=== PATIENT | female | born 1950 | race Caucasian/White ===

== ENCOUNTER 2020-05-19 05:43 | Observation (INO) | payer OTHER ==
[2020-05-18 12:57] VITALS: BP 149/71
[2020-05-18 13:09] LABS: BASOPHILS % (AUTO) 1 % (0-1); EOSINOPHILS % (AUTO) 6 % (1-7); LYMPHOCYTES % (AUTO) 23 % (22-44); MEAN CORPUSCULAR HEMOGLOBIN 31.1 pg (27.0-34.8); MEAN CORPUSCULAR HGB CONC 33.9 g/dL (32.4-35.8); MEAN PLATELET VOLUME 8.4 fL (7.4-10.4); MONOCYTES % (AUTO) 7 % (2-9); NEUTROPHILS % (AUTO) 63 % (42-75); PLATELET COUNT 193 x10^3/uL (130-400); RED BLOOD COUNT 3.75 x10^6/uL (3.82-5.3); RED CELL DISTRIBUTION WIDTH 13.6 % (9.6-15.2)
[2020-05-18 13:10] LABS: MD NO
[2020-05-18 13:13] LABS: ALBUMIN 3.2 g/dL (3.4-5.0); ANION GAP 6 mmol/L (5-15); CALCIUM 8.4 mg/dL (8.5-10.1); CHLORIDE 94 mmol/L (98-107)
[2020-05-18 13:14] LABS: INTERNATIONAL NORMALIZED RATIO 1.07 (0.93-1.1); PROTHROMBIN TIME 11.4 Seconds (9.6-11.5)
[2020-05-18 13:17] LABS: ALANINE AMINOTRANSFERASE 23 U/L (12-78); ALKALINE PHOSPHATASE 79 U/L (45-117); BILIRUBIN,TOTAL 0.8 mg/dL (0.2-1.0); CREATININE 2.19 mg/dL (0.55-1.02); TOTAL PROTEIN 7.2 g/dL (6.4-8.2)
[~2020-05-19] VITALS: Ht 157.5 cm; Wt 57.0 kg
[~2020-05-19 05:43] MED LIST: AMLO-150 PO; ASPI81TA45 PO; ATOR-2 PO; CA C1TAB26 PO; CARV6.252 PO; FURO80TA77 PO; LISI-170 PO; METO2.5T PO
[2020-05-19 06:34] VITALS: BP 149/71
[2020-05-19] MEDS ORDERED: MIDAZOLAM 1 MG/ML, 2ML ONE (06:56)
[2020-05-19] MEDS ORDERED: FENTANYL PF 100 MCG/2ML ONE (06:56)
[2020-05-19] MEDS ORDERED: CEFAZOLIN 1,000 MG ONE (06:58)
[2020-05-19] MEDS ORDERED: DEXAMETHASONE 4 MG/ML, 1ML ONE (06:58)
[2020-05-19] MEDS ORDERED: ONDANSETRON 2MG/ML, 2ML ONE (06:58)
[2020-05-19] MEDS ORDERED: PROPOFOL 10 MG/ML, 20ML ONE (06:58)
[2020-05-19] MEDS ORDERED: PAPAVERINE 30 MG/ML, 2ML ONE (06:59)
[2020-05-19] MEDS ORDERED: BUPIVACAINE/PF 0.5% ONE (06:59)
[2020-05-19] MEDS ORDERED: HEPARIN 1,000 UNITS/ML, 10ML ONE (06:59)
[2020-05-19] MEDS ORDERED: THROMBIN 20,000 UNIT VIAL TP ONE (07:00)
[2020-05-19] MEDS ORDERED: LACTATED RINGERS 1,000 ML IV SCH (07:00)
[2020-05-19] MEDS ORDERED: EPINEPHRINE 1 MG/ML, 1ML ONE (07:00)
[2020-05-19] MEDS ORDERED: CHLORHEXIDINE 15 ML UDC MM ONE (07:00)
[2020-05-19] MEDS ORDERED: PROTAMINE SULFATE 10 MG/ML, 25ML ONE ×2 (07:00→07:03)
[2020-05-19] MEDS ORDERED: SODIUM CHLORIDE 0.9% 1,000 ML IV SCH (07:30)
[2020-05-19] MEDS ORDERED: EPHEDRINE 50 MG/ML, 1ML ONE (07:37)
[2020-05-19] MEDS ORDERED: BUPIVACAINE/PF-EPI 0.5% 1:200K INFIL ONE (07:53)
[2020-05-19] MEDS ORDERED: HEPARIN 1,000 UNITS/ML, 10ML IV ONE (07:53)
[2020-05-19] MEDS ORDERED: ONDANSETRON 2MG/ML, 2ML IVPush PRN (08:00)
[2020-05-19] MEDS ORDERED: PROMETHAZINE 25 MG/ML, 1ML IVPush PRN (08:00)
[2020-05-19] MEDS ORDERED: OXYcodone 5 MG/5 ML ORAL.SOL UDC PO PRN (08:00)
[2020-05-19] MEDS ORDERED: HYDROcodone/APAP 7.5-325MG/15ML UDC PO PRN (08:00)
[2020-05-19] MEDS ORDERED: HYDROmorphone 1 MG/ML, 1ML INJ IVPush PRN (08:00)
[2020-05-19] MEDS ORDERED: MEPERIDINE/PF 25MG/0.5ML IVPush PRN (08:00)
[2020-05-19] MEDS ORDERED: FENTANYL PF 100 MCG/2ML IV PRN (08:00)
[2020-05-19] MEDS ORDERED: HYDROcodone/APAP 5/325 TABLET PO PRN (09:30)
[2020-05-19] MEDS ORDERED: SODIUM CHLORIDE FLUSH 10ML SYR IVF SCH (21:00)
== END 2020-05-19 10:45 | disposition home or self-care (01) ==
LOC: OUT 05:43 → ORIP 05:44
PROVIDERS: ADMIT Surgery; ATTEND Surgery
DX: I12.0 Hypertensive chronic kidney disease with stage 5 chronic kidney disease or end stage renal disease (principal); Z20.822 Contact with and (suspected) exposure to COVID-19; E11.22 Type 2 diabetes mellitus with diabetic chronic kidney disease; N18.6 End stage renal disease; I70.213 Atherosclerosis of native arteries of extremities with intermittent claudication, bilateral legs; Z89.512 Acquired absence of left leg below knee; Z89.511 Acquired absence of right leg below knee; Z99.2 Dependence on renal dialysis; Z79.82 Long term (current) use of aspirin; Z79.899 Other long term (current) drug therapy
CPT/HCPCS: 36415; 36821; 71046; 80053; 82962; 85025; 85610; 85730; 93005; G0378; J0171; J0690; J1100; J1644; J2250; J2405; J2704; J3010; J7030; S0020; U0003; J2720; J2440

== ENCOUNTER 2020-09-17 05:52 | Observation (INO) | payer OTHER ==
[2020-09-14 16:29] LABS: ALANINE AMINOTRANSFERASE 20 U/L (12-78); ALBUMIN 3.4 g/dL (3.4-5.0); ANION GAP 6 mmol/L (5-15); CHLORIDE 94 mmol/L (98-107)
[2020-09-14 16:31] LABS: ALKALINE PHOSPHATASE 67 U/L (45-117); BILIRUBIN,TOTAL 0.4 mg/dL (0.2-1.0); CREATININE 2.81 mg/dL (0.55-1.02); TOTAL PROTEIN 7.5 g/dL (6.4-8.2)
[2020-09-14 16:35] LABS: INTERNATIONAL NORMALIZED RATIO 1.11 (0.93-1.1); PROTHROMBIN TIME 11.8 Seconds (9.6-11.5)
[2020-09-14 16:39] LABS: BASOPHILS % (AUTO) 1 % (0-1); EOSINOPHILS % (AUTO) 8 % (1-7); LYMPHOCYTES % (AUTO) 27 % (22-44); MEAN CORPUSCULAR HEMOGLOBIN 32.4 pg (27.0-34.8); MEAN CORPUSCULAR HGB CONC 33.9 g/dL (32.4-35.8); MEAN PLATELET VOLUME 8.1 fL (7.4-10.4); MONOCYTES % (AUTO) 8 % (2-9); NEUTROPHILS % (AUTO) 56 % (42-75); PLATELET COUNT 205 x10^3/uL (130-400); RED CELL DISTRIBUTION WIDTH 13.4 % (9.6-15.2)
[~2020-09-17] VITALS: Ht 157.5 cm; Wt 57.7 kg
[~2020-09-17 05:52] MED LIST changes: +FAMO20TA17 PO; +METO5TAB5 PO; +SEVE800T8 PO
[2020-09-17 06:25] VITALS: BP 156/79
[2020-09-17] MEDS ORDERED: CHLORHEXIDINE 15 ML UDC ONE ×2 (07:02→11:33)
[2020-09-17] MEDS ORDERED: LIDOCAINE 1%, 10ML ONE (07:06)
[2020-09-17] MEDS ORDERED: LIDOCAINE 1%, 20ML ONE (07:06)
[2020-09-17] MEDS ORDERED: FENTANYL PF 100 MCG/2ML ONE ×2 (07:21→11:12)
[2020-09-17] MEDS ORDERED: NALOXONE 1 MG/ML, 2ML ONE (07:21)
[2020-09-17] MEDS ORDERED: FLUMAZENIL 0.1 MG/1 ML, 5ML ONE (07:21)
[2020-09-17] MEDS ORDERED: PROTAMINE SULFATE 10 MG/ML, 25ML ONE ×2 (07:21→10:07)
[2020-09-17] MEDS ORDERED: HEPARIN 1,000 UNITS/ML, 10ML ONE ×2 (07:21→09:17)
[2020-09-17] MEDS ORDERED: MIDAZOLAM 1 MG/ML, 5ML ONE (07:21)
[2020-09-17] MEDS ORDERED: SODIUM CHLORIDE 0.9% 1,000 ML IV SCH (07:30)
[2020-09-17] MEDS ORDERED: CHLORHEXIDINE 15 ML UDC PO ONE (07:30)
[2020-09-17] MEDS ORDERED: THROMBIN 20,000 UNIT VIAL TP ONE (09:17)
[2020-09-17] MEDS ORDERED: PROTAMINE SULFATE 10 MG/ML, 5ML ONE (09:17)
[2020-09-17] MEDS ORDERED: PAPAVERINE 30 MG/ML, 2ML ONE (09:17)
[2020-09-17] MEDS ORDERED: EPINEPHRINE 1 MG/ML, 1ML ONE (09:17)
[2020-09-17] MEDS ORDERED: BUPIVACAINE/PF 0.5% ONE (09:17)
[2020-09-17] MEDS ORDERED: VISIPAQUE 270 MG/ML, 150ML BOTTLE ONE (10:29)
[2020-09-17] MEDS ORDERED: HEPARIN 1,000 UNITS/ML, 10ML IV ONE (11:17)
[2020-09-17] MEDS ORDERED: BUPIVACAINE/PF 0.5% INFIL ONE (11:18)
[2020-09-17] MEDS ORDERED: EPINEPHRINE 1 MG/ML, 1ML INFIL ONE (11:18)
[2020-09-17] MEDS ORDERED: HYDROmorphone 1 MG/ML, 1ML INJ IVPush PRN (11:30)
[2020-09-17] MEDS ORDERED: OXYcodone 5 MG/5 ML ORAL.SOL UDC PO PRN (11:30)
[2020-09-17] MEDS ORDERED: PROMETHAZINE 25 MG SUPP PR PRN (11:30)
[2020-09-17] MEDS ORDERED: FENTANYL PF 100 MCG/2ML IV PRN (11:30)
[2020-09-17] MEDS ORDERED: PROMETHAZINE 25 MG/ML, 1ML IVPush PRN (11:30)
[2020-09-17] MEDS ORDERED: ACETAMINOPHEN 325 MG TABLET PO PRN (11:30)
[2020-09-17] MEDS ORDERED: LABETALOL 5MG/ML, 20ML IV PRN (11:30)
[2020-09-17] MEDS ORDERED: ONDANSETRON 2MG/ML, 2ML IVPush PRN ×2 (11:30→13:30)
[2020-09-17] MEDS ORDERED: ACETAMINOPHEN 500 MG TABLET ONE (11:33)
[2020-09-17] MEDS ORDERED: PROPOFOL 10 MG/ML, 20ML ONE (11:58)
[2020-09-17] MEDS ORDERED: ONDANSETRON 2MG/ML, 2ML ONE (11:58)
[2020-09-17] MEDS ORDERED: CEFAZOLIN 1,000 MG ONE (11:58)
[2020-09-17] MEDS: hydrALAzine 20 MG/ML, 1ML IV PRN ×2 (13:20→14:19)
[2020-09-17] MEDS ORDERED: hydrALAzine 20 MG/ML, 1ML ONE (13:24)
[2020-09-17] MEDS ORDERED: OXYcodone 5 MG/5 ML ORAL.SOL UDC ONE (13:39)
[2020-09-17] MEDS ORDERED: ACETAMINOPHEN 650 MG/20.3 ML UDC ONE (13:40)
[2020-09-17] MEDS ORDERED: SODIUM CHLORIDE FLUSH 10ML SYR IVF SCH (21:00)
== END 2020-09-17 17:00 | disposition home or self-care (01) ==
LOC: OUT 05:52 → ORIP 12:53
PROVIDERS: ADMIT Surgery; ATTEND Surgery
DX: I12.0 Hypertensive chronic kidney disease with stage 5 chronic kidney disease or end stage renal disease (principal); Z20.822 Contact with and (suspected) exposure to COVID-19; E11.22 Type 2 diabetes mellitus with diabetic chronic kidney disease; N18.6 End stage renal disease; I73.9 Peripheral vascular disease, unspecified; Z89.511 Acquired absence of right leg below knee; Z89.512 Acquired absence of left leg below knee; Z99.2 Dependence on renal dialysis; Z79.82 Long term (current) use of aspirin; Z79.899 Other long term (current) drug therapy
CPT/HCPCS: 36415; 36819; 37224; 71046; 75630; 76937; 80053; 82962; 85025; 85610; 85730; 93005; 99156; 99157; C1725; C1751; C1760; C1769; C1894; C2623; G0378; J0171; J0360; J0690; J1644; J2250; J2405; J2704; J2720; J3010; J3490; J7030; Q9966; S0020; U0003; U0005; J2310; J2440

== ENCOUNTER 2020-11-05 10:10 | Inpatient (IN) | payer OTHER ==
[~2020-11-05] VITALS: Ht 152.4 cm; Wt 61.8 kg
[2020-11-05] MEDS ORDERED: DORZ1DRO5 EACHEYE (11:24)
[2020-11-05] MEDS ORDERED: CLOP75TA52 PO (11:24)
[2020-11-05] MEDS ORDERED: TRAM50TA2 PO (11:24)
[2020-11-05] MEDS ORDERED: LATA2.5D4 EACHEYE (11:24)
[2020-11-05 11:29] VITALS: BP 157/93
[2020-11-05] MEDS ORDERED: PLEASE ENTER HEIGHT AND WEIGHT MC SCH (11:30)
[2020-11-05] MEDS ORDERED: CHLORHEXIDINE 15 ML UDC PO ONE (11:30)
[2020-11-05 11:40] LABS: BASOPHILS % (AUTO) 1 % (0-1); EOSINOPHILS % (AUTO) 6 % (1-7); LYMPHOCYTES % (AUTO) 25 % (22-44); MEAN CORPUSCULAR HEMOGLOBIN 32.4 pg (27.0-34.8); MEAN CORPUSCULAR HGB CONC 34.1 g/dL (32.4-35.8); MEAN PLATELET VOLUME 7.8 fL (7.4-10.4); MONOCYTES % (AUTO) 9 % (2-9); NEUTROPHILS % (AUTO) 59 % (42-75); PLATELET COUNT 225 x10^3/uL (130-400); RED BLOOD COUNT 3.68 x10^6/uL (3.82-5.3); RED CELL DISTRIBUTION WIDTH 13.4 % (9.6-15.2)
[2020-11-05 11:55] LABS: ALANINE AMINOTRANSFERASE 14 U/L (12-78); ALBUMIN 3.4 g/dL (3.4-5.0); ANION GAP 11 mmol/L (5-15); CALCIUM 9.2 mg/dL (8.5-10.1); CHLORIDE 95 mmol/L (98-107); CREATININE 4.19 mg/dL (0.55-1.02)
[2020-11-05 11:57] LABS: ALKALINE PHOSPHATASE 63 U/L (45-117); BILIRUBIN,TOTAL 0.4 mg/dL (0.2-1.0); TOTAL PROTEIN 7.6 g/dL (6.4-8.2)
[2020-11-05] MEDS ORDERED: SODIUM CHLORIDE 0.9% 1,000 ML IV SCH (12:00)
[2020-11-05] MEDS ORDERED: HEPARIN 1,000 UNITS/ML, 30ML ONE (13:33)
[2020-11-05] MEDS ORDERED: BUPIVACAINE/PF 0.5% ONE (13:33)
[2020-11-05] MEDS ORDERED: PROTAMINE SULFATE 10 MG/ML, 5ML ONE (13:33)
[2020-11-05] MEDS ORDERED: EPINEPHRINE 1 MG/ML, 1ML ONE (13:33)
[2020-11-05] MEDS ORDERED: FENTANYL PF 250 MCG/5ML ONE (14:01)
[2020-11-05] MEDS ORDERED: PROPOFOL 50 ML ONE (14:01)
[2020-11-05] MEDS ORDERED: ONDANSETRON 2MG/ML, 2ML ONE (14:41)
[2020-11-05] MEDS ORDERED: GLYCOPYRROLATE 0.2MG/1ML, 5ML ONE (14:56)
[2020-11-05] MEDS ORDERED: EPHEDRINE 50 MG/ML, 1ML IM PRN (15:00)
[2020-11-05] MEDS ORDERED: OXYcodone 5 MG/5 ML ORAL.SOL UDC PO PRN (15:00)
[2020-11-05] MEDS ORDERED: morphine SULFATE 10 MG/ML, 1ML IVPush PRN (15:00)
[2020-11-05] MEDS ORDERED: DIAZEPAM 5 MG/ML, 2ML IVPush PRN (15:00)
[2020-11-05] MEDS ORDERED: DIPHENHYDRAMINE 50 MG/ML, 1ML IVPush PRN (15:00)
[2020-11-05] MEDS ORDERED: PROMETHAZINE 25 MG/ML, 1ML IVPush PRN (15:00)
[2020-11-05] MEDS ORDERED: ONDANSETRON 2MG/ML, 2ML IVPush PRN (15:00)
[2020-11-05] MEDS ORDERED: LABETALOL 5MG/ML, 20ML IV PRN (15:00)
[2020-11-05] MEDS ORDERED: VISIPAQUE 270 MG/ML, 50ML BOTTLE ONE (16:42)
[2020-11-05] MEDS ORDERED: EPHEDRINE 50 MG/ML, 1ML ONE (17:20)
[2020-11-05] MEDS ORDERED: CEFAZOLIN PMX 1GM/50ML 50 ML IVPB SCH (17:30)
[2020-11-05] MEDS ORDERED: ACETAMINOPHEN 650 MG SUPP PR PRN (17:30)
[2020-11-05] MEDS: EPHEDRINE 50 MG/ML, 1ML IVPush PRN ×3 (17:55→20:33)
[2020-11-05] MEDS ORDERED: FENTANYL PF 100 MCG/2ML ONE (18:24)
[2020-11-05] MEDS: FENTANYL PF 100 MCG/2ML IV PRN ×3 (18:30→21:55)
[2020-11-05] MEDS ORDERED: PHENYLEPHRINE 50 MG in SODIUM CHLORIDE 0.9% 245 ML IV PRN (18:30)
[2020-11-05] MEDS ORDERED: hydrALAzine 20 MG/ML, 1ML ONE (19:03)
[2020-11-05] MEDS: INSULIN REGULAR 100 UNITS/ML, 3ML VIAL SQ-INSULIN SCH (21:00)
[2020-11-05] MEDS: SODIUM CHLORIDE FLUSH 10ML SYR IVF SCH (21:00)
[2020-11-05] MEDS: HYDROcodone/APAP 5/325 TABLET PO PRN (23:29)
[2020-11-06 00:25] VITALS: BP 102/55
[2020-11-06 03:49] VITALS: BP 127/65
[2020-11-06 05:21] LABS: BASOPHILS % (AUTO) 1 % (0-1); EOSINOPHILS % (AUTO) 0 % (1-7); LYMPHOCYTES % (AUTO) 7 % (22-44); MEAN CORPUSCULAR HEMOGLOBIN 32.4 pg (27.0-34.8); MEAN CORPUSCULAR HGB CONC 33.6 g/dL (32.4-35.8); MEAN PLATELET VOLUME 7.8 fL (7.4-10.4); MONOCYTES % (AUTO) 6 % (2-9); NEUTROPHILS % (AUTO) 87 % (42-75); PLATELET COUNT 183 x10^3/uL (130-400); RED BLOOD COUNT 2.93 x10^6/uL (3.82-5.3); RED CELL DISTRIBUTION WIDTH 13.8 % (9.6-15.2)
[2020-11-06 05:56] LABS: ANION GAP 11 mmol/L (5-15); CHLORIDE 102 mmol/L (98-107)
[2020-11-06 05:58] LABS: CREATININE 4.51 mg/dL (0.55-1.02)
[2020-11-06] MEDS: INSULIN REGULAR 100 UNITS/ML, 3ML VIAL SQ-INSULIN SCH ×4 (07:00→21:00)
[2020-11-06] MEDS: HYDROcodone/APAP 5/325 TABLET PO PRN ×2 (08:09→17:18)
[2020-11-06] MEDS: SODIUM CHLORIDE FLUSH 10ML SYR IVF SCH ×2 (09:00→21:41)
[2020-11-06 09:07] VITALS: BP 156/66
[2020-11-06] MEDS: FUROSEMIDE 80 MG TABLET PO SCH ×2 (10:27→17:17)
[2020-11-06] MEDS: LISINOPRIL 20 MG TABLET PO SCH (10:27)
[2020-11-06] MEDS: CLOPIDOGREL 75 MG TABLET PO SCH (10:27)
[2020-11-06] MEDS: CARVEDILOL 6.25 MG TABLET PO SCH ×2 (10:27→17:17)
[2020-11-06] MEDS: FAMOTIDINE 20 MG TABLET PO SCH (10:28)
[2020-11-06] MEDS: ASPIRIN 81 MG TABLET EC PO SCH (10:28)
[2020-11-06] MEDS: METOLAZONE 5 MG TABLET PO SCH (10:28)
[2020-11-06] MEDS: ONDANSETRON 2MG/ML, 2ML IVPush PRN (14:38)
[2020-11-06 17:52] VITALS: BP 193/84
[2020-11-06] MEDS ORDERED: hydrALAzine 20 MG/ML, 1ML IV ONE (18:00)
[2020-11-06 18:31] VITALS: BP 134/68
[2020-11-06 19:45] VITALS: BP 144/77
[2020-11-06] MEDS ORDERED: LATANOPROST OPHTH 0.005%, 2.5ML EACHEYE SCH (21:00)
[2020-11-06] MEDS ORDERED: ATORVASTATIN 80 MG TABLET PO SCH (21:00)
[2020-11-07 00:35] VITALS: BP 170/80
[2020-11-07] MEDS ORDERED: LABETALOL 5MG/ML, 20ML IVPush PRN (01:00)
[2020-11-07 01:04] VITALS: BP 149/73
[2020-11-07] MEDS: ONDANSETRON 2MG/ML, 2ML IVPush PRN (04:11)
[2020-11-07 06:17] VITALS: BP 151/79
[2020-11-07] MEDS: CARVEDILOL 6.25 MG TABLET PO SCH (06:18)
[2020-11-07] MEDS: INSULIN REGULAR 100 UNITS/ML, 3ML VIAL SQ-INSULIN SCH ×2 (07:49→11:57)
[2020-11-07] MEDS: LISINOPRIL 20 MG TABLET PO SCH (07:58)
[2020-11-07] MEDS: METOLAZONE 5 MG TABLET PO SCH (07:58)
[2020-11-07] MEDS: FAMOTIDINE 20 MG TABLET PO SCH (07:58)
[2020-11-07] MEDS: FUROSEMIDE 80 MG TABLET PO SCH (07:58)
[2020-11-07] MEDS: ASPIRIN 81 MG TABLET EC PO SCH (07:58)
[2020-11-07] MEDS: CLOPIDOGREL 75 MG TABLET PO SCH (07:58)
[2020-11-07] MEDS: SODIUM CHLORIDE FLUSH 10ML SYR IVF SCH (07:58)
[2020-11-07] MEDS ORDERED: HYDR-2214 PO (10:04)
[2020-11-07 13:00] VITALS: BP 150/78
== END 2020-11-07 13:15 | disposition home or self-care (01) | DRG 37 ==
LOC: ORIP 10:10 → 4NE 23:38
PROVIDERS: ADMIT Surgery; ATTEND Surgery
PROC: 037Y3ZZ Dilation of Upper Artery, Percutaneous Approach (ICD-10-PCS; 2020-11-05)
PROC: 03CL0ZZ Extirpation of Matter from Left Internal Carotid Artery, Open Approach (ICD-10-PCS; principal; 2020-11-05 12:00)
PROC: 5A1D70Z Performance of Urinary Filtration, Intermittent, Less than 6 Hours Per Day (ICD-10-PCS; 2020-11-06)
DX: I65.22 Occlusion and stenosis of left carotid artery (principal); N18.6 End stage renal disease; E87.1 Hypo-osmolality and hyponatremia; I12.0 Hypertensive chronic kidney disease with stage 5 chronic kidney disease or end stage renal disease; T82.510A Breakdown (mechanical) of surgically created arteriovenous fistula, initial encounter; Z91.018 Allergy to other foods; D63.1 Anemia in chronic kidney disease; D72.829 Elevated white blood cell count, unspecified; E10.22 Type 1 diabetes mellitus with diabetic chronic kidney disease; H54.7 Unspecified visual loss; N25.0 Renal osteodystrophy; Y71.2 Prosthetic and other implants, materials and accessory cardiovascular devices associated with adverse incidents; Y92.89 Other specified places as the place of occurrence of the external cause; Z79.4 Long term (current) use of insulin; Z86.73 Personal history of transient ischemic attack (TIA), and cerebral infarction without residual deficits; Z89.512 Acquired absence of left leg below knee; Z99.2 Dependence on renal dialysis; Z98.51 Tubal ligation status; Z88.8 Allergy status to other drugs, medicaments and biological substances
CPT/HCPCS: 36415; S0020; 75710; 80048; 80053; 82962; 85025; 86850; 86900; 90935; C1729; G0378; J0171; J0690; J1644; J1815; J2405; J2704; J2720; J3010; Q9966; C1781; J0360; J7030